=== PATIENT | female | born 1965 ===

== ENCOUNTER 2018-03-18 06:59 | Day surgery (SDC) | payer OTHER ==
[~2018-03-18 06:59] MED LIST: ASPIR-LOW81 MG PO; CLONAZEPAM0.5 MG PO; ESTRACE0.5 MG PO; LIRICA PO; PRILOSEC10 MG PO; PROSC PO; TRENTAL PO; VOLTAREN100 GM PO; XANAX0.25 MG PO; [UNRECOGNIZED DRUG - OTHER] PO; [UNRECOGNIZED DRUG - OTHER] PO
[2018-03-18] MEDS ORDERED: PERCOCET 5-3251 EACH PO (09:51)
[2018-03-18] MEDS ORDERED: POLY119PG PO (09:51)
[2018-03-18] MEDS ORDERED: SURFAK240 M1 PO (09:51)
[2018-03-18] MEDS ORDERED: NEURONTIN600 MG PO (09:51)
== END 2018-03-18 14:50 | disposition home or self-care (01) ==
LOC: CIR.AMB 06:59
DX: K42.0 Umbilical hernia with obstruction, without gangrene (principal); K43.0 Incisional hernia with obstruction, without gangrene